=== PATIENT | male | born 1995 | race Caucasian/White ===

== ENCOUNTER 2019-05-09 02:17 | Emergency (ER) | payer OTHER ==
[~2019-05-09] VITALS: Ht 170.2 cm; Wt 72.6 kg
[2019-05-09] MEDS ORDERED: ALBU8.5H8 IH (02:24)
[2019-05-09] MEDS ORDERED: ONDANSETRON 4 MG/2 ML VIAL IV ONE (02:45)
[2019-05-09] MEDS ORDERED: IV NORMAL SALINE 1000 ML BAG IV ONE ×2 (02:45→03:30)
[2019-05-09] MEDS ORDERED: ONDANSETRON 4 MG/2 ML VIAL ONE (02:47)
[2019-05-09] MEDS ORDERED: CEFTRIAXONE 1 G in IV DEXTROSE 5% 50 ML IV ONE (03:30)
[2019-05-09] MEDS ORDERED: CEFTRIAXONE 1 G VIAL ONE (03:30)
--- NOTE | 2019-05-09 04:08 | NUR ---
Patient states "I feel alot better now."
--- NOTE | 2019-05-09 04:13 | NUR ---
IV removed. Catheter intact and site benign. Pressure and 4x4 gauze applied to site. No bleeding noted.
[2019-05-09 04:17] VITALS: BP 138/85
--- NOTE | 2019-05-09 04:17 | NUR ---
Patient discharged to home in stable conditon with girlfriend taking patient home. Written and verbal after care instructions given. Patient verbalizes understanding of instructions. Walked out of ER with no distress noted.
== END 2019-05-09 04:18 | disposition home or self-care (01) ==
LOC: ER 02:25
DX: J06.9 Acute upper respiratory infection, unspecified (principal); R11.2 Nausea with vomiting, unspecified; J45.909 Unspecified asthma, uncomplicated; Z88.8 Allergy status to other drugs, medicaments and biological substances; Z79.899 Other long term (current) drug therapy
CPT/HCPCS: 36415; 71045; 86403; 87070; 87400; 96361; 96365; 96375; 99284; J0696; J2405; J7060; A4663; J7030

== ENCOUNTER 2020-12-15 20:26 | Inpatient (IN) | payer BC, OTHER ==
[~2020-12-15] VITALS: Ht 167.6 cm; Wt 63.5 kg
[~2020-12-15 20:26] MED LIST: ALBU8.5H8 IH
--- NOTE | 2020-12-15 20:30 | NUR ---
Patient walked into ER c/o intermitten nonradiating CP that started about 3 days ago. Patient states this AM CP has been constant with left arm numbness.
[2020-12-15] MEDS ORDERED: IV NORMAL SALINE 1000 ML BAG IV ONE (20:45)
--- NOTE | 2020-12-15 20:45 | NUR ---
Dr. Valdes on bedside for MSE.
[2020-12-15 20:59] LABS: HEMATOCRIT 50.2 % (36.7-47.1); MEAN CORPUSCULAR HEMOGLOBIN 29.2 uug (23.8-33.4); MEAN CORPUSCULAR VOLUME 85.5 fL (73.0-96.2); PLATELET COUNT (AUTO) 295 K/uL (152-348)
[2020-12-15 21:03] LABS: POTASSIUM 3.8 mmol/L (3.5-5.1)
[2020-12-15] MEDS ORDERED: LORAZEPAM 2 MG/1 ML VIAL IV ONE (21:15)
[2020-12-15] MEDS ORDERED: IOHEXOL 350 100 ML INFUS..BTL ONE (21:30)
[2020-12-15] MEDS ORDERED: SWABABLE VALVE TRANSFER SET EA MC ONE (21:30)
[2020-12-15] MEDS ORDERED: IV NORMAL SALINE 250 ML IV ONE (21:30)
[2020-12-15] MEDS ORDERED: LORAZEPAM 2 MG/1 ML VIAL ONE (21:46)
--- NOTE | 2020-12-15 22:00 | NUR ---
Pt taken to CT.
--- NOTE | 2020-12-15 22:21 | NUR ---
Back from CT
--- NOTE | 2020-12-15 22:35 | NUR ---
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
--- NOTE | 2020-12-15 22:51 | NUR ---
Dr Valdes on panel call with Dr. Weaver. Patient accepted for admission to Tele unit, Dx of CP. palpitations
[2020-12-15] MEDS ORDERED: ONDANSETRON 4 MG/2 ML VIAL IV PRN (23:00)
[2020-12-15] MEDS ORDERED: IV NS 1000 ML 1,000 ML IV PRN (23:00)
[2020-12-15] MEDS ORDERED: MORPHINE SULFATE 2 MG/1 ML DISP.SYRIN IV PRN (23:00)
[2020-12-15] MEDS ORDERED: DOCUSATE SODIUM 100 MG CAPSULE PO PRN (23:00)
[2020-12-15] MEDS ORDERED: ACETAMINOPHEN 325 MG TABLET PO PRN (23:00)
[2020-12-15] MEDS ORDERED: MAG HYDROX/AL HYDROX/SIMETH 30 ML LIQUID UDC PO PRN (23:00)
[2020-12-15] MEDS ORDERED: NITROGLYCERIN 0.4 MG/TAB BOTTLE SL PRN (23:00)
[2020-12-15] MEDS ORDERED: ALBUTEROL SULFATE 8 GM HFA.AER.AD IH SCH (23:15)
--- NOTE | 2020-12-15 23:25 | NUR ---
Pt. admitted to Tele unit, room 302, under care of Dr. Weaver. Belongs List completed
[2020-12-15 23:38] VITALS: BP 132/81
[2020-12-16] VITALS: BP_SYST 123; BP_SYST 132; BP_DIAS 81
--- NOTE | 2020-12-16 01:35 | NUR ---
At 2330H, admitted a 25 y/o male from ER to Tele with admitting dx of chest pain. Pt is alert and oriented x4, ambulatory. Noted with pain scale 2/10 per pt info. On room air saturating at 97%. Started on NS 1000 L at 100 ml/hr, infusing well on L AC #20. No s/sx of infiltration on IV site. Sinus tachycardia on monitor, HR 109. Body assessment done, no skin issues noted. Belongings list done by [employer] ELECTRICAL DESIGNER and placed in chart. All needs attended. Call light placed within reach. Will continue to monitor.
[2020-12-16 04:00] VITALS: BP 153/86
--- NOTE | 2020-12-16 06:33 | NUR ---
Patient slept throughout the night, easily arousable for care. On room air saturating at 100%. Peripheral line on L AC #20 remains intact and infusing well with NS 1L at 100 ml /hr. No s/sx of infiltration on IV site. NSR on monitor, HR 60s-70s. Denies pain and discomfort at this time. Ambulatory to bathroom. All needs attended. Call light placed within reach. Frequent visual checks done. Will continue to monitor.
[2020-12-16 06:46] LABS: HEMATOCRIT 44.9 % (36.7-47.1); MEAN CORPUSCULAR VOLUME 85.7 fL (73.0-96.2); PLATELET COUNT (AUTO) 252 K/uL (152-348)
[2020-12-16 07:47] LABS: CREATININE 0.8 mg/dL (0.6-1.3); POTASSIUM 3.4 mmol/L (3.5-5.1)
[2020-12-16 07:53] LABS: BILIRUBIN,TOTAL 0.6 mg/dL (0.2-1.0); MAGNESIUM 2.1 mg/dL (1.8-2.4); PHOSPHOROUS 4.4 mg/dL (2.5-4.9); TOTAL PROTEIN, SERUM 6.7 g/dL (6.4-8.2)
--- NOTE | 2020-12-16 08:00 | NUR ---
Received report from assistant casino shift manager. Patient alert and oriented x 4 On room air saturating at 100%. Peripheral line on L AC #20 remains intact and infusing well with NS 1L at 100 ml /hr. No s/sx of infiltration on IV site. On tele monitor, sinus rhythm HR 60s-70s. No complaint of pain or discomfort at this time. Ambulatory to bathroom. Call light placed within reach, bed low and locked. Will continue to monitor.
[2020-12-16] MEDS ORDERED: POTASSIUM CHLORIDE 20 MEQ POWDER PACKET PO ONE (08:15)
[2020-12-16] MEDS ORDERED: ASPIRIN 81 MG TAB.CHEW PO SCH (09:00)
[2020-12-16] MEDS ORDERED: ALBUTEROL SULFATE 2.5 MG/3 ML NEBU NEB PRN (09:30)
[2020-12-16] MEDS: IBUPROFEN 800 MG TABLET PO SCH ×3 (09:42→16:56)
[2020-12-16 11:12] VITALS: BP 132/80
[2020-12-16 15:24] VITALS: BP 134/74
--- NOTE | 2020-12-16 19:00 | NUR ---
PT DISCHARGED HOME WITH ALL BELONGINGS. VITALS WNL, PT AMBULATORY ON ROOM AIR. NO COMPLAINTS OF PAIN OR DISCOMFORT. EXIT CARE AND FOLLOW UP INSTRUCTIONS GIVEN TO PT. IV, ID BAND, AND CARDIAC MONITORING REMOVED PRIOR TO DISCHARGE. PT LEFT WITH FAMILY MEMBER AT BEDSIDE VIA PRIVATE CAR.
--- NOTE | 2020-12-16 19:05 | NUR ---
RAPID COVID TEST NEGATIVE RESULT.
== END 2020-12-16 19:00 | disposition home or self-care (01) | DRG 313 ==
LOC: ER 20:26 → TELE3 23:17
PROVIDERS: ADMIT Registered Nurse; ATTEND Registered Nurse
DX: R07.89 Other chest pain (principal); F41.9 Anxiety disorder, unspecified; J45.909 Unspecified asthma, uncomplicated; D72.829 Elevated white blood cell count, unspecified; R00.0 Tachycardia, unspecified; D75.1 Secondary polycythemia; K90.0 Celiac disease; T48.6X5A Adverse effect of antiasthmatics, initial encounter; Y92.009 Unspecified place in unspecified non-institutional (private) residence as the place of occurrence of the external cause; R20.0 Anesthesia of skin; E86.0 Dehydration; Z20.822 Contact with and (suspected) exposure to COVID-19; M54.12 Radiculopathy, cervical region
CPT/HCPCS: 36415; 70030-TC; 71045; 71275; 83605; 83735; 84100; 84443; 85025; 85651; 86140; 93005; 93307; A4663; G0378; J2060; J7030; J7050; Q9967

== ENCOUNTER 2021-02-20 16:56 | Emergency (ER) | payer BC, OTHER ==
[~2021-02-20] VITALS: Ht 167.6 cm; Wt 61.7 kg
[2021-02-20 17:34] LABS: *BILIRUBIN,URIN NEGATIVE (NEGATIVE); *BLOOD, URINE NEGATIVE (NEGATIVE); *CLARITY,URINE CLEAR (CLEAR); *COLOR,URINE YELLOW (YELLOW); *KETONES,URINE NEGATIVE (NEGATIVE); *UROBILINOGEN,URINE 0.2 E.U./dl (NORMAL); LEUKOCYTE ESTERASE ,URINE NEGATIVE (NEGATIVE); NITRITE, URINE NEGATIVE (NEGATIVE); PH,URINE 6.5 (5.0-8.0); UGLUCOSE NEGATIVE (NEGATIVE)
--- NOTE | 2021-02-20 18:29 | NUR ---
splicing technician at bedside
[2021-02-20 18:54] VITALS: BP 127/86
--- NOTE | 2021-02-20 18:54 | NUR ---
Patient discharged to home in stable condition. Written and verbal after care instructions given. Patient verbalizes understanding of instructions. Stressed follow up or return to ER for worsening s/s.
== END 2021-02-20 18:54 | disposition home or self-care (01) ==
LOC: ER 17:10
DX: N50.811 Right testicular pain (principal); K90.0 Celiac disease; J45.909 Unspecified asthma, uncomplicated
CPT/HCPCS: 76870; A4663

== ENCOUNTER 2023-08-30 21:20 | Emergency (ER) | payer BC ==
[~2023-08-30] VITALS: Ht 170.2 cm; Wt 68.9 kg
[2023-08-30] MEDS ORDERED: GLUCAGON,HUMAN RECOMBINANT 1 MG VIAL ONE (22:27)
[2023-08-30] MEDS: GLUCAGON,HUMAN RECOMBINANT 1 MG VIAL IM ONE (22:28)
[2023-08-30 22:54] LABS: BASOPHILS # (AUTO) 0.1 K/UL (0.0-0.2); BASOPHILS % (AUTO) 0.7 % (0.0-2.0); DIFFERENTIAL COMMENT 0; EOSINOPHILS # (AUTO) 0.5 K/uL (0.0-0.7); EOSINOPHILS % (AUTO) 5.8 % (0.0-7.0); HEMATOCRIT 48.5 % (36.7-47.1); HEMOGLOBIN 17.1 g/dL (12.5-16.3); LYMPHOCYTES # (AUTO) 1.6 K/uL (0.8-4.8); LYMPHOCYTES % (AUTO) 20.9 % (20.5-51.5); MEAN CORPUSCULAR HEMOGLOBIN 30.1 uug (23.8-33.4); MEAN CORPUSCULAR HGB CONC 35 g/dL (32.5-36.3); MEAN CORPUSCULAR VOLUME 85.1 fL (73.0-96.2); MONOCYTES # (AUTO) 0.6 K/uL (0.1-1.30); MONOCYTES % (AUTO) 7.3 % (0.0-11.0); NEUTROPHILS # (AUTO) 5.2 K/uL (1.8-8.9); NEUTROPHILS % (AUTO) 65.3 % (38.5-71.5); PLATELET COUNT (AUTO) 263 K/uL (152-348); RED CELL DISTRIBUTION WIDTH 12.6 % (12.1-16.2); WHITE BLOOD COUNT (AUTO) 7.9 K/uL (3.6-10.2)
[2023-08-30 23:09] LABS: ALBUMIN 4.6 g/dL (3.4-5.0); BILIRUBIN,TOTAL 0.4 mg/dL (0.2-1.0); CALCIUM 9.1 mg/dL (8.5-10.1); POTASSIUM 3.6 mmol/L (3.5-5.1)
[2023-08-31 00:26] VITALS: BP 134/77; O2SAT 98
== END 2023-08-31 00:22 | disposition home or self-care (01) ==
LOC: ER 21:24
DX: S27.818A Other injury of esophagus (thoracic part), initial encounter (principal); M54.2 Cervicalgia; J45.909 Unspecified asthma, uncomplicated; Z88.8 Allergy status to other drugs, medicaments and biological substances; Z79.899 Other long term (current) drug therapy; X58.XXXA Exposure to other specified factors, initial encounter; Y93.89 Activity, other specified; Y92.89 Other specified places as the place of occurrence of the external cause; Y99.8 Other external cause status
CPT/HCPCS: 99285; 70490; 80053; 85025; 36415; 96372; 83605; J1610; A4606; A4663